=== PATIENT | male | born 1955 | race African-American/Black ===

== ENCOUNTER 2020-05-07 14:02 | Emergency (ER) | payer OTHER ==
[~2020-05-07] VITALS: Ht 170.2 cm; Wt 87.0 kg
[2020-05-07 15:06] LABS: BASOPHILS % 0.9 % (0.0-2.0); EOSINOPHILS % 0.2 % (0.0-5.0); HEMATOCRIT. 43.1 % (42.0-52.0); HEMOGLOBIN. 14.6 g/dL (14.0-18.0); MEAN CORPUSCULAR HEMOGLOBIN 29.8 pg (28.0-32.0); MEAN CORPUSCULAR VOLUME 88.1 fL (80.0-94.0); MEAN PLATELET VOLUME 7.4 fl (7.4-10.4); MONOCYTES % 13.4 % (2.0-8.0); NEUTROPHILS % 42.5 % (40.0-76.0); PLATELET 166 x1000/uL (130-400); RED CELL DISTRIBUTION WIDTH 13.3 % (11.6-14.6)
[2020-05-07 15:07] LABS: CHLORIDE 102 mEq/L (98-107)
[2020-05-07 17:15] VITALS: BP 137/76
== END 2020-05-07 17:37 | disposition home or self-care (01) ==
LOC: ER 14:02
DX: U07.1 COVID-19 (principal); R41.82 Altered mental status, unspecified; G89.29 Other chronic pain; M25.512 Pain in left shoulder; E78.00 Pure hypercholesterolemia, unspecified
CPT/HCPCS: 36415; 73030; 80053; 85025; 93005; 99285